=== PATIENT | male | born 1945 | race African-American/Black ===

== ENCOUNTER 2017-10-12 08:00 | Inpatient (IN) | payer OTHER ==
[2017-10-01 10:21] VITALS: BMI 36.3
[2017-10-14] MEDS ORDERED: TRANEXAMIC ACID 1000 MG/10 ML VIAL IVPUSH ONE (21:51)
[2017-10-14] MEDS ORDERED: CELECOXIB 200 MG CAPSULE PO ONE (21:51)
[2017-10-14] MEDS ORDERED: oxyCODONE HCL 10 MG SUSTAINED ACTING TABLET PO ONE (21:51)
[2017-10-14] MEDS ORDERED: GABAPENTIN 300 MG CAPSULE (FP) PO ONE (21:51)
[2017-10-14] MEDS ORDERED: CEFAZOLIN 2 GM in DEXTROSE 5%-WATER - 50 ML IVPB ONE (21:51)
[2017-10-14] MEDS ORDERED: ROPIVICAINE 0.2%/MORPH PF/KETOROLAC - 51ML DISP.SYRINGE IA ONE (21:51)
[2017-10-14] MEDS ORDERED: PANTOPRAZOLE 40 MG TABLET (FP) PO ONE (21:52)
--- NOTE | 2017-10-15 07:40 | HP ---
Admitting History and Physical - Admission Chief Complaint: left knee osteoarthritis x years History of Present Illness: 72 year old male presents in regard to his left knee. Longstanding history of left knee osteoarthritis. Patient complains of pain, limited ROM, difficulty ambulating and difficulty with ADLs. Patient has failed conservative treatment options including PO medications, activity modification, injections and exercise program. At this point, patient would like to proceed with surgical intervention, left total knee arthroplasty (MAKOplasty). History Source: Patient - Past Medical History Renal/: Yes: BPH Heme/Onc: Yes: B12 Deficiency - Past Surgical History Additional Past Surgical History: See written history & physical - Smoking History Smoking history: Never smoked Have you smoked in the past 12 months: No - Alcohol/Substance Use Hx Alcohol Use: No Home Medications - Allergies Allergies/Adverse Reactions: Allergies Allergy/AdvReac Type Severity Reaction Status Date / Time No Known Allergies Allergy Verified 10/01/17 10:09 - Home Medications Home Medications: Ambulatory Orders Aspirin [ASA -] 81 mg PO DAILY 10/01/17 Cyanocobalamin (Vitamin B-12) [Vitamin B-12] 1,000 mcg PO DAILY 10/01/17 Folic Acid 0.8 mg PO DAILY 10/01/17 Naproxen [EC-Naprosyn] 500 mg PO BID 10/01/17 Pregabalin [Lyrica -] 75 mg PO TID 10/01/17 Pyridoxine HCl (Vitamin B6) [Vitamin B-6] 100 mg PO DAILY 10/01/17 Tamsulosin HCl [Flomax] 0.4 mg PO HS 10/01/17 Review of Systems - Review of Systems Musculoskeletal: reports: Crepitus (left knee), Decreased ROM (left knee), Joint Pain (left knee), Joint Swelling (left knee) Physical Examination Constitutional: Yes: Well Nourished, No Distress Eyes: Yes: Conjunctiva Clear HENT: Yes: Atraumatic, Normocephalic Neck: Yes: Supple Cardiovascular: Yes: Regular Rate and Rhythm Respiratory: Yes: Regular Gastrointestinal: Yes: Soft ...Rectal Exam: Yes: Deferred Musculoskeletal: Yes: Joint Stiffness (left kene), Joint Swelling (left knee) Assessment/Plan 72 year old male presents in regard to his left knee. Longstanding history of left knee osteoarthritis. Patient complains of pain, limited ROM, difficulty ambulating and difficulty with ADLs. Patient has failed conservative treatment options including PO medications, activity modification, injections and exercise program. At this point, patient would like to proceed with surgical intervention, left total knee arthroplasty (MAKOplasty). Pros, cons, risks, benefits and alternatives of a left total knee arthroplasty (MAKOplasty) were discussed with the patient at length. Patient confirms his understanding and consents to proceed with a left total knee arthroplasty (MAKOplasty).
[2017-10-15] MEDS ORDERED: PANTOPRAZOLE 40 MG TABLET (FP) ONE (08:12)
[2017-10-15] MEDS ORDERED: oxyCODONE HCL 10 MG SUSTAINED ACTING TABLET ONE (08:13)
[2017-10-15] MEDS ORDERED: GABAPENTIN 300 MG CAPSULE (FP) ONE (08:13)
[2017-10-15] MEDS ORDERED: CELECOXIB 200 MG CAPSULE ONE (08:13)
[2017-10-15] MEDS ORDERED: BUPIVACAINE HCL/PF (5 MG/ML) 30 ML VIAL IJ ONE (09:20)
[2017-10-15] MEDS ORDERED: MIDAZOLAM HCL 2 MG/2 ML SINGLE DOSE VIAL ONE ×3 (09:20→12:35)
[2017-10-15] MEDS ORDERED: SODIUM CHLORIDE 0.9% P/F 10 ML VIAL IJ ONE (09:20)
[2017-10-15] MEDS ORDERED: BUPIVACAINE LIPOSOME/PF (EXPAREL) 266 MG/20 ML VIAL ONE (09:20)
[2017-10-15] MEDS ORDERED: VANCOMYCIN 1,000 MG VIAL (RESTRICTED TO ID ONLY) ONE (09:38)
[2017-10-15] MEDS ORDERED: TRANEXAMIC ACID 1000 MG/10 ML VIAL ONE ×3 (09:38→13:38)
[2017-10-15] MEDS ORDERED: ceFAZolin SODIUM 1 GM VIAL ONE ×2 (09:38→10:59)
[2017-10-15] MEDS ORDERED: ROPIVICAINE 0.2%/MORPH PF/KETOROLAC - 51ML DISP.SYRINGE IA ONE (09:40)
[2017-10-15] MEDS ORDERED: ONDANSETRON 4 MG/2 ML VIAL ONE (10:59)
[2017-10-15] MEDS ORDERED: DEXAMETHASONE SOD PHOSPHATE 4 MG/1 ML VIAL ONE (10:59)
[2017-10-15] MEDS ORDERED: ePHEDrine SULFATE 50 MG/1 ML AMPULE ONE (11:17)
[2017-10-15] MEDS ORDERED: ONDANSETRON 4 MG/2 ML VIAL IVPUSH PRN ×2 (14:13→14:23)
[2017-10-15] MEDS ORDERED: oxyCODONE HCL 5 MG TABLET PO PRN ×2 (14:13)
[2017-10-15] MEDS ORDERED: LACTATED RINGERS SOLUTION 1,000 ML IV SCH ×2 (14:15→14:30)
[2017-10-15] MEDS ORDERED: traMADol HCL 50 MG TABLET ONE (14:16)
[2017-10-15] MEDS ORDERED: ACETAMINOPHEN INJECTION 100 ML IVPB ONE (14:16)
[2017-10-15] MEDS ORDERED: KETOROLAC TROMETHAMINE 30 MG/1 ML VIAL ONE (14:16)
[2017-10-15] MEDS ORDERED: ceFAZolin SODIUM 1 GM VIAL IVPB ONE (14:18)
[2017-10-15] MEDS ORDERED: VANCOMYCIN 1,000 MG VIAL (RESTRICTED TO ID ONLY) IVPB ONE (14:19)
[2017-10-15] MEDS ORDERED: TRANEXAMIC ACID 1000 MG/10 ML VIAL IVPB ONE (14:20)
--- NOTE | 2017-10-15 14:21 | OP ---
Operative Note - Note: Operative Date: 10/15/17 Pre-Operative Diagnosis: left knee OA Operation: left EMI TKA Post-Operative Diagnosis: Same as Pre-op Surgeon: Shukri Willoughby Cleaning Supervisor: Yeimy Albright Anesthesia: Spinal Estimated Blood Loss (mls): 100
[2017-10-15] MEDS ORDERED: MAG HYDROX/AL HYDROX/SIMETH 30 ML UNIT-DOSE CUP PO PRN (14:23)
[2017-10-15] MEDS ORDERED: MAGNESIUM HYDROX 2400MG/30ML ORAL SUSPENSION 30 ML CUP PO PRN (14:23)
[2017-10-15] MEDS ORDERED: ACETAMINOPHEN 1000 MG/100 ML VIAL (NON FORMULARY) IVPB ONE (14:26)
[2017-10-15] MEDS: traMADol HCL 50 MG TABLET PO SCH ×2 (14:45→21:33)
[2017-10-15] MEDS: KETOROLAC TROMETHAMINE 30 MG/1 ML VIAL IVPUSH SCH ×2 (14:50→21:35)
[2017-10-15] MEDS: ACETAMINOPHEN 325 MG TABLET (FP) PO SCH ×2 (17:17→21:34)
[2017-10-15] MEDS: GABAPENTIN 300 MG CAPSULE (FP) PO SCH (21:32)
[2017-10-15] MEDS: TAMSULOSIN HCL 0.4 MG CAP.ER.24H (FP) PO SCH (21:32)
[2017-10-15] MEDS: CELECOXIB 200 MG CAPSULE PO SCH (21:32)
[2017-10-15] MEDS: ASCORBIC ACID 500 MG TABLET (FP) PO SCH (21:33)
[2017-10-15] MEDS: SENNOSIDES/DOCUSATE COMBO (SENNA PLUS) TABLET (UD) PO SCH (21:34)
[2017-10-15] MEDS: oxyCODONE HCL 10 MG SUSTAINED ACTING TABLET PO SCH (21:34)
[2017-10-15] MEDS: PREGABALIN 25 MG CAPSULE PO SCH (21:35)
[2017-10-15] MEDS: CEFAZOLIN 2 GM/D5W 2 GM/50 ML ML IVPB SCH (22:50)
[2017-10-15] MEDS ORDERED: DEXAMETHASONE SOD PHOSPHATE 10 MG/1 ML VIAL IVPB ONE (23:00)
[2017-10-16] MEDS: traMADol HCL 50 MG TABLET PO SCH ×4 (02:51→21:07)
[2017-10-16] MEDS: ACETAMINOPHEN 325 MG TABLET (FP) PO SCH ×4 (02:52→21:08)
[2017-10-16] MEDS: CEFAZOLIN 2 GM/D5W 2 GM/50 ML ML IVPB SCH ×2 (02:52→10:00)
[2017-10-16] MEDS: KETOROLAC TROMETHAMINE 30 MG/1 ML VIAL IVPUSH SCH ×2 (02:53→08:30)
[2017-10-16] MEDS: PREGABALIN 25 MG CAPSULE PO SCH ×3 (06:40→21:07)
[2017-10-16] MEDS: ASPIRIN 325 MG TABLET PO SCH (08:00)
[2017-10-16 08:45] LABS: ANION GAP 9 MMOL/L (8-16); BLOOD UREA NITROGEN 17 mg/dl (7-18); CALCIUM 8.2 mg/dl (8.4-10.2); CHLORIDE 102 mmol/L (98-107); CO2 22 mmol/L (22-28); CREATININE 0.7 mg/dl (0.6-1.3); GLUCOSE,RANDOM 166 mg/dl (74-106); POTASSIUM 3.7 mmol/L (3.5-5.1); SODIUM 133 mmol/L (136-145)
[2017-10-16 08:47] LABS: HEMATOCRIT 32.8 % (35.4-49); HEMOGLOBIN 10.5 GM/dl (11.7-16.9); MCH 28.4 pg (25.7-33.7); MCHC 31.9 g/dl (32.0-35.9); PLATELET COUNT 222 K/MM3 (134-434); RBC 3.69 M/mm3 (4.00-5.60); RDW 16.2 % (11.9-15.9); WHITE BLOOD COUNT 7.7 K/mm3 (4.0-10.8)
[2017-10-16] MEDS: CELECOXIB 200 MG CAPSULE PO SCH ×2 (10:00→21:08)
[2017-10-16] MEDS ORDERED: PANTOPRAZOLE 40 MG TABLET (FP) PO SCH (10:00)
[2017-10-16] MEDS ORDERED: MULTIVITAMINS (DAILY MVI) TABLET (FP) PO SCH (10:00)
[2017-10-16] MEDS: GABAPENTIN 300 MG CAPSULE (FP) PO SCH ×2 (10:00→21:07)
[2017-10-16] MEDS: oxyCODONE HCL 10 MG SUSTAINED ACTING TABLET PO SCH ×2 (10:05→21:09)
[2017-10-16] MEDS: ASCORBIC ACID 500 MG TABLET (FP) PO SCH ×2 (10:10→21:09)
[2017-10-16] MEDS: SENNOSIDES/DOCUSATE COMBO (SENNA PLUS) TABLET (UD) PO SCH ×2 (10:10→21:10)
--- NOTE | 2017-10-16 10:15 | PN ---
Progress Note (short form) - Note Progress Note: ANESTHESIA POSTOP 72 yo male POD#1 s/p R TKA with spinal anesthesia and PNB. Patient doing well. Actively participating in PT. Tolerating PO. Pain adequately controlled. VSS, Afebrile Continue current care. Encouraged IS.
[2017-10-16] MEDS: TAMSULOSIN HCL 0.4 MG CAP.ER.24H (FP) PO SCH (21:08)
[2017-10-17] MEDS: PREGABALIN 25 MG CAPSULE PO SCH (06:46)
[2017-10-17] MEDS: traMADol HCL 50 MG TABLET PO SCH ×2 (06:47→08:20)
[2017-10-17] MEDS: ACETAMINOPHEN 325 MG TABLET (FP) PO SCH ×2 (06:48→10:20)
[2017-10-17 07:03] VITALS: BP 113/80; PULSE 80; TEMP 98.4
[2017-10-17] MEDS: ASPIRIN 325 MG TABLET PO SCH (08:00)
[2017-10-17 08:36] LABS: HEMATOCRIT 30.9 % (35.4-49); MCH 28.8 pg (25.7-33.7); MCHC 32.3 g/dl (32.0-35.9); MEAN CELL VOLUME 89.1 fl (80-96); PLATELET COUNT 202 K/MM3 (134-434); RBC 3.47 M/mm3 (4.00-5.60); RDW 15.9 % (11.9-15.9); WHITE BLOOD COUNT 5.5 K/mm3 (4.0-10.8)
[2017-10-17] MEDS: oxyCODONE HCL 10 MG SUSTAINED ACTING TABLET PO SCH (09:45)
[2017-10-17] MEDS: CELECOXIB 200 MG CAPSULE PO SCH (10:00)
--- NOTE | 2017-10-17 10:00 | DS ---
Physical Examination Vital Signs: Vital Signs Temperature 98.4 F 10/17/17 06:00 Pulse Rate 80 10/17/17 06:00 Respiratory Rate 18 10/17/17 09:20 Blood Pressure 113/80 10/17/17 06:00 O2 Sat by Pulse Oximetry (%) 97 10/17/17 09:20 Labs: CBC, BMP 10/17/17 07:24 Discharge Summary Reason For Visit: OSTEOARTHRITIS LEFT KNEE Current Active Problems Osteoarthritis of left knee (Acute) Procedures: Principal: left EMI TKA Hospital Course: Admitted for elective surgery. Procedure performed without complications. Pt received postoperative antibiotic prophylaxis and DVT ppx. Ambulated with physical therapy. Stable for discharge home with outpatient followup. Condition: Stable - Instructions Diet, Activity, Other Instructions: Dr. Willoughby - Knee Replacement Instructions Keep the Aquacel dressing on until removed by Dr. Willoughby in 10-14 days - it is antibacterial and waterproof and you can shower with it on. Call the office for a follow-up appointment with Dr. Willoughby in 10-14 days. Take one Aspirin 325mg daily for 6 weeks to prevent blood clots in your legs. Take one Pantoprazole 40mg daily for 6 weeks to protect against heartburn and ulcers. Take Cephalexin (antibiotic) 3x/day for 10 days to help prevent skin infection. Take Celebrex 200mg daily for 30 days to reduce swelling and inflammation. Take a multivitamin, stool softener, and extra Vitamin C supplement daily. For pain: *Mild pain (1-3/10): Take 1 Tramadol tablet every 4 hours as needed. Moderate pain (4-6/10): Take 1 Tramadol tablet and 1 Percocet tablet every 4 hours as needed. Severe pain (7-10/10): Take 1 Tramadol tablet and 2 Percocet tablets every 4 hours as needed. Activity: You can put as much weight on the operative leg as you want. Right after you get home, there will be a physical therapist coming to your house to help you walk around and bend/straighten your knee. After your follow-up appointment, you will be sent for more intensive outpatient physical therapy which will include machines and equipment that the home therapist cannot bring to your house. Always use a walker or cane for balance and to prevent falls. Expect to see swelling/bruising from the operative site all the way down to your toes. Wear the compression stocking on the operative side during the day to minimize how much swelling there is in your foot/ankle. Don't wear the stocking at night. You don't have to wear a stocking on the other side. Disposition: VNS/HOME HEALTH CARE - Home Medications Comprehensive Discharge Medication List: Ambulatory Orders Cyanocobalamin (Vitamin B-12) [Vitamin B-12] 1,000 mcg PO DAILY 10/01/17 Folic Acid 0.8 mg PO DAILY 10/01/17 Pregabalin [Lyrica -] 75 mg PO TID 10/01/17 Pyridoxine HCl (Vitamin B6) [Vitamin B-6] 100 mg PO DAILY 10/01/17 Tamsulosin HCl [Flomax -] 0.4 mg PO HS 10/01/17 Ascorbic Acid [Vitamin C -] 500 mg PO BID tablet 10/17/17 Aspirin [ASA -] 325 mg PO DAILY@0800 tablet 10/17/17 Celecoxib [CeleBREX -] 200 mg PO DAILY #30 capsule 10/17/17 Cephalexin Monohydrate [Keflex -] 500 mg PO TID #30 capsule 10/17/17 Multivitamins [Multivit ([facility] Formul[facility])] 1 tab PO DAILY tab 10/17/17 Oxycodone HCl/Acetaminophen [Percocet 5-325 mg Tablet] 1 - 2 tab PO Q4H PRN #60 tablet MDD 10 10/17/17 Pantoprazole Sodium [Protonix -] 40 mg PO DAILY #40 tablet.ec 10/17/17 Sennosides/Docusate Sodium [Pericolace -] 2 tablet PO BID tablet 10/17/17 traMADol HCL [Ultram -] 50 mg PO Q4H PRN #42 tablet MDD 6 10/17/17
[2017-10-17] MEDS: GABAPENTIN 300 MG CAPSULE (FP) PO SCH (10:15)
[2017-10-17 10:21] LABS: ANION GAP 7 MMOL/L (8-16); BLOOD UREA NITROGEN 16 mg/dl (7-18); CALCIUM 8.4 mg/dl (8.4-10.2); CHLORIDE 105 mmol/L (98-107); CO2 26 mmol/L (22-28); CREATININE 0.6 mg/dl (0.6-1.3); GLUCOSE,RANDOM 87 mg/dl (74-106); POTASSIUM 3.6 mmol/L (3.5-5.1); SODIUM 138 mmol/L (136-145)
--- NOTE | 2017-10-20 16:05 | PATH ---
Surgical Pathology Report Patient Name: MARISA PRICE Med. Rec. #: [id number] /Age/Gender: 1945 (Age: 72) / M Account: [id number] Location: [facility] MED-SURG Taken: 10/15/2017 Received: 10/15/2017 Reported: 10/20/2017 Physicians: Shukri Willoughby M.D. Specimen(s) Received BONE LEFT KNEE Clinical History Osteoarthritis left knee Final Diagnosis BONE, KNEE, LEFT, TOTAL KNEE REPLACEMENT MAKOPLASTY: BONE WITH DEGENERATIVE JOINT DISEASE, DENSE FIBROCONNECTIVE TISSUE, AND REACTIVE SYNOVIUM. Electronically Signed Chanell Forbes M.D. Gross Description Received in formalin labeled "bone left knee," is a 12.0 x 9.5 x 3.0 cm aggregate of multiple portions of bone and soft tissue, consistent with knee bones. There is a 1.4 cm in greatest dimension area of eburnation identified. The remaining articular surfaces are shah brown and diffusely granular. The underlying trabecular bone is yellow and hard. Locomotive Inspector sections are submitted in one, following decalcification. 10/16/2017 [facility]10/16/2017
--- NOTE | 2017-11-11 11:52 | SPEC ---
DATE OF OPERATION: 10/15/2017 PREOPERATIVE DIAGNOSIS: Left knee osteoarthritis. POSTOPERATIVE DIAGNOSIS: Left knee osteoarthritis. PROCEDURE: Left total knee replacement with MAKOplasty robotic navigation. ATTENDING SURGEON: Avis Mcmanus MD WRAP TURNER: SALINA Ruiz ANESTHESIA: Spinal plus sedation. ESTIMATED BLOOD LOSS: 100 mL. COMPLICATIONS: None. DISPOSITION: The patient was transferred to the PACU in stable condition. IMPLANTS USED: [place] [employer] size 4 femoral component, size 5 tibial component, 16-mm total stabilized polyethylene component, 32-mm patellar component. INDICATIONS: This is a 72-year-old male who presented to the office complaining of severe left knee pain. He was seen and examined by Dr. Mcmanus and diagnosed with severe left knee osteoarthritis. The patient was initially treated nonoperatively with injections, medications, and physical therapy but continued to have severe pain and ambulatory dysfunction. He was, therefore, indicated for a left total knee replacement. The risks, benefits, and alternatives to the surgery were explained to the patient in great detail, and he elected to proceed with the procedure. DESCRIPTION OF PROCEDURE: On the day of surgery, the patient was taken to the operating room and placed on the OR table. Spinal anesthesia was administered by the anesthesiologist. The patient was then positioned supine on the table and all bony prominences were padded. The knee was then prepped and draped in the usual sterile fashion and intravenous antibiotics were given for infection prophylaxis. A surgical time-out was then performed with the team, and the patients identity, procedure, side, availability of implants, and the administration of antibiotics was confirmed. With the knee flexed, a midline incision was made and carried down through the subcutaneous fat to the underlying retinaculum. A medial parapatellar arthrotomy was performed. This was followed by a subperiosteal dissection of the tissue off the proximal, medial tibia. A portion of fat pad was removed from under the patellar tendon, and a small portion of fat was excised off the distal supracondylar femur. Electrocautery and an [employer] bipolar sealing device were used to achieve hemostasis. The knee was then flexed further, and the anterior horn of the lateral meniscus was released from the midline. Next, the anterior and posterior cruciate ligaments were transected. Grade 4 changes were noted diffusely throughout the knee. Femoral and tibial checkpoints were then placed in the appropriate location using a mallet. Two parallel bicortical self-drilling pins were placed in the tibial diaphysis after making stab incisions and bluntly dissecting down to bone. Two pins were then placed in the distal supracondylar femur. The [employer] navigation arrays were then attached to both the femoral and tibial pins and the lower extremity was then registered to the robotic navigation device using various joint movements, as well as inputting several dozen reference points. The knee was then taken through a full range of motion with a corrective force applied. Alignment in varus/valgus as well as flexion/extension and soft tissue balance was measured in various positions. The navigation device showed a numerical and graphic representation of the soft tissue balance. The components were repositioned virtually using the software until optimal soft tissue balance was achieved on screen. Once this was accomplished, the final plan was saved and sent to the robot. Self-retaining retractors were then placed at the joint line for exposure and protection of the collateral ligaments. The robot was brought into the sterile field and registered with the navigation device. The robotic arm with attached oscillating saw blade was then used to perform femoral and tibial bone cuts as per the saved software plan. The femoral box cut was made using the appropriately sized manual cutting guide. The knee was then irrigated. Trial components were placed, and the knee was taken through a full range of motion to assess soft tissue balance and alignment. The range of motion was found to be excellent and the soft tissue balance was optimal and according to plan. The knee was then put into extension and the patella everted. The synovium around the patella was circumscribed with electrocautery. A caliper was used to measure the patellar thickness and a saw was then used to resect the patella at the chondro-osseous junction. The cut surface was then sized and drilled for the appropriate patellar button, with care taken to medialize it. A trial patella was then placed, and the knee was again taken through a full range of motion. The knee was found to have both good balance and good patellar tracking. All of the components were removed except the tibial base plate. The appropriate instrumentation was used to drill and punch the proximal tibia for the keel of the final component. All bony surfaces were then cleaned with pulsatile lavage and dried. Bone cement was then prepared on the back table, and final components were cemented in place in the usual fashion. Extruded cement was removed. The polyethylene trial was placed, the knee was put into extension, and axial pressure was applied for compression while the cement hardened. The patellar button was similarly cemented into place. Once the cement had hardened, the knee was taken through a full range of motion to assess stability, balance, and patellar tracking. This was found to be optimal and the trial polyethylene was exchanged for the appropriately sized real implant. The wound was then thoroughly irrigated with normal saline. A 3-minute dilute Betadine lavage was performed. The knee was again irrigated using a pulsatile lavage device. A periarticular injection was used to locally infiltrate the capsular tissues surrounding the implant and prosthesis. Then No. 1 Polysorb and 0 VLoc 180 barbed sutures were used to close the arthrotomy. Then No. 1 Polysorb and 2-0 VLoc 90 sutures were used in the subcutaneous tissues. Then 4-0 undyed Vicryl and Dermabond skin adhesive was used to close the stab incisions made for the navigation pins. The skin was closed using both 3-0 VLoc 90 suture in a running subcuticular fashion and Dermabond skin adhesive. Once this was completed a sterile Aquacel dressing and compressive Yoseph-wrap was applied. The patient was then awakened and taken to the PACU in stable condition. AVIS MCMANUS M.D. [id number]
== END 2017-10-17 12:50 | disposition home health service (06) | DRG 302 ==
LOC: FM/S 10-15 07:52
PROVIDERS: ADMIT Student in an Organized Health Care Education/Training Program; ATTEND Student in an Organized Health Care Education/Training Program
PROC: 8E0Y0CZ Robotic Assisted Procedure of Lower Extremity, Open Approach (ICD-10-PCS; 2017-10-15)
PROC: 0SRD0JZ Replacement of Left Knee Joint with Synthetic Substitute, Open Approach (ICD-10-PCS; principal; 2017-10-15 11:22)
DX: M17.12 Unilateral primary osteoarthritis, left knee (principal); E53.8 Deficiency of other specified B group vitamins; N40.0 Benign prostatic hyperplasia without lower urinary tract symptoms
CPT/HCPCS: 36415; 73560-TC-LT-FY; 80048; 85027; 88305-TC; 88311-TC; 94760; 97116-GP; 97162-GP; J0131; J1100